=== PATIENT | male | born 1985 | race Caucasian/White ===

== ENCOUNTER → 2019-11-26 12:51 | Outpatient (CLI) | payer OTHER, SELFPAY ==
--- NOTE | ~2019-11-26 | US_ITS ---
US soft tissue groin RT 11/26/2019 13:35 Indication: Right lower pelvic and muscle pain. History of recent injury. 3 areas of localized pain. Procedure: High-resolution Limited ultrasound of the right pelvic and inguinal soft tissues in the ar ea of palpable concern Comparison: No prior studies for comparison. Findings: In the pelvis to the right of midline there is normal heterogeneous soft tissues without fo ute mass. In the right lower abdomen/pelvis there is a oval hypoechoic mass with central echogenicity measuring 1.5 x 2.7 x 1.1 cm. There is posterior shadowing. In the right inguinal region there are m ultiple lymph nodes, largest measuring 1.6 cm. Impression: 1: Masses in the right lower pelvis and right inguinal region, most likely all lymph nodes, likely re active. Consider correlation with contrast-enhanced CT abdomen/pelvis as clinically warranted. Reviewed, dictated and finalized at location A. Impression: 1: Masses in the right lower pelvis and right inguinal region, most likely all lymph nodes, likely reactive. Consider correlation with contrast-enhanced CT ab domen/pelvis as clinically warranted.
== END ==
PROVIDERS: PCP Emergency Medicine; Visit Provider Emergency Medicine
DX: R10.31 Right lower quadrant pain (principal); R19.09 Other intra-abdominal and pelvic swelling, mass and lump
CPT/HCPCS: 76882

== ENCOUNTER 2019-12-11 14:46 | Outpatient (CLI) | payer OTHER, SELFPAY ==
--- NOTE | ~2019-12-11 | CT_ITS ---
EXAMINATION: CT abdomen pelvis w con EXAM DATE: 12/11/2019 15:24 INDICATION: Lymphadenopathy. TECHNIQUE: Spiral CT of the abdomen and pelvis was performed following intravenous injection of 100 m L Omnipaque 350. Axial, coronal and sagittal images were reviewed. The dose-length product (DLP) fo r this examination was 541.25 mGy-cm. The exposure was tailored according to patient size (auto mA e xposure control), and iterative reconstruction (ASIR) was used as additional dose reduction technique . There is no prior study for comparison. FINDINGS: Small lymph nodes in the inguinal region with fatty karine, reactive. There is no retroperito francine or pelvic lymphadenopathy. The liver, spleen, adrenal glands and pancreas are unremarkable. Gallbladder is unremarkable. No biliary obstruction. Portal and splenic veins are patent. Kidneys enhance symmetrically. There is no hydronephrosis. The prostate is unremarkable. The bladder is u nremarkable. The appendix is normal. The stomach and small bowel are unremarkable. There is expected amount of c olonic stool. No free intraperitoneal gas. The heart is normal in size. There are no pericardial or pleural effusions. The lung bases are unremarkable. The bones are unremarkable. IMPRESSION: No abdominal pelvic or inguinal lymphadenopathy. Normal exam. Reviewed, dictated and finalized at location A.
== END 2019-12-11 14:47 | disposition home or self-care (01) ==
PROVIDERS: PCP Emergency Medicine; Visit Provider Emergency Medicine
DX: R59.1 Generalized enlarged lymph nodes (principal)
CPT/HCPCS: 74177; Q9967